=== PATIENT | female | born 1945 | race Caucasian/White ===

== ENCOUNTER → 2017-10-29 | Outpatient (CLI) | payer OTHER, BC ==
[~2017-10-29] MED LIST: CALTRATE PLUS1 EACH PO; CARDURA1 M1 PO; CLARITIN,ALAVAR10 MG PO; FEMARA2.5 MG PO; FLEXERIL5 MG PO; FLONASE16 G1 BOTH NARES; LIPITOR40 MG PO; LO-DOSE ASPIRIN81 M1 PO; LOSARTAN POTAS100 MG PO; LUNESTA3 MG PO; MURO-128 5300 DROP/1 BOTH EYES; NEXIUM40 MG PO; NIFEDICAL XL30 MG PO; PROLIA60 MG/1 ML SC; QUINAPRIL HCL40 MG PO; REFRESH CELLUV1 EACH BOTH EYES; SYNTHROID75 MCG PO; VALTREX50 MG/ML PO; VANCOCIN HCL125 MG PO; XANAX0.25 MG PO; ZETIA10 MG PO
== END | disposition home or self-care (01) ==
DX: R13.10 Dysphagia, unspecified (principal); Z87.01 Personal history of pneumonia (recurrent); Z87.19 Personal history of other diseases of the digestive system
CPT/HCPCS: 92611 GN; G8996 GN; G8997 GN; G8998 GN